=== PATIENT | female | born 1955 | race Caucasian/White ===

== ENCOUNTER → 2016-11-05 | Outpatient (CLI) | payer BC ==
--- NOTE | 2016-11-05 10:38 | REPMRS ---
Patient History The patient states she had a clinical breast exam in 10/2016. Patient is postmenopausal. Family history of breast cancer in maternal aunt at age 45. Benign stereotatic breast biopsy of the right breast, November 08, 2007. Took estrogen for 1 year. Took progesterone for 1 year. Digital Woman Screen Mammo: November 05, 2016 - Exam #: [id number] Bilateral CC and MLO view(s) were taken. Technologist: Tiny Duenas, Technologist Prior study comparison: November 03, 2015, digital woman screen mammo performed at [facility]. November 01, 2014, digital woman screen mammo performed at [facility]. October 31, 2013, digital woman screen mammo performed at [facility]. FINDINGS: There are scattered fibroglandular densities. There has been no change in the appearance of the mammogram from the prior studies. There is a needle biopsy marker clip in the right breast. There is a mild amount of scattered fibroglandular density which is fairly symmetric. There is no interval development of dominant mass, architectural distortion, or clustered microcalcification suggestive of malignancy. ASSESSMENT: BI-RADS/ACR category 2 mammogram. Benign finding(s). Recommendation Routine screening mammogram in 1 year (for women over age 40). This mammogram was interpreted with the aid of an FDA-approved computer-aided dectection system. Electronically Signed By: Yeison Joe MD 11/05/16 1038
== END ==
LOC: M WHC 09:01
PROVIDERS: ATTEND Nurse Practitioner Family
DX: Z12.31 Encounter for screening mammogram for malignant neoplasm of breast (principal)

== ENCOUNTER → 2017-11-07 | Outpatient (REF) | payer BC | LOC: M SFHCWAGY 12:29 | DX: Z12.4 Encounter for screening for malignant neoplasm of cervix (principal) | CPT/HCPCS: G0123 ==

== ENCOUNTER → 2017-11-07 | Outpatient (CLI) | payer BC | LOC: M WHC 09:24 | DX: Z12.31 Encounter for screening mammogram for malignant neoplasm of breast (principal) | CPT/HCPCS: 77067 ==

== ENCOUNTER → 2018-11-07 | Outpatient (CLI) | payer MEDICARE, BC ==
--- NOTE | 2018-11-07 12:28 | REPMRS ---
Patient History The patient states she had a clinical breast exam in 10/2018. Family history of breast cancer at age 45 in maternal aunt. Benign stereotatic breast biopsy of the right breast, November 08, 2007. Took estrogen for 1 year. Took progesterone for 1 year. 3D TOMOSYNTHESIS WAS PERFORMED. Digital Woman Screen Mammo: November 07, 2018 - Exam #: [id number] Bilateral CC and MLO view(s) were taken. Technologist: Sofia Hurtado, Technologist Prior study comparison: November 07, 2017, digital woman screen mammo performed at [facility]. November 05, 2016, digital woman screen mammo performed at [facility]. FINDINGS: The breast tissue is heterogeneously dense. This may lower the sensitivity of mammography. There has been no change in the appearance of the mammogram from the prior studies. There is a moderate amount of residual fibroglandular tissue which is fairly symmetric. There is no interval development of dominant mass, areas of architectural distortion, or clustered microcalcification typical of malignancy. Assessment: BI-RADS/ACR category 1 mammogram. Negative Mammogram. Recommendation Routine screening mammogram in 1 year (for women over age 40). This mammogram was interpreted with the aid of an FDA-approved computer-aided dectection system. Electronically Signed By: Declan Mendoza MD 11/07/18 1322
--- NOTE | 2018-11-10 14:02 | DEXA ---
AP SPINE L1 - L4 1.144 -0.4 1.2 LT FEMUR TOTAL 0.849 -1.3 -0.1 LT NECK 0.801 -1.7 -0.2 RT FEMUR TOTAL 0.884 -1.0 0.2 RT NECK 0.805 -1.7 -0.2 TOTAL BODY TOTAL OTHER COMMENTS: Normal bone densitometry of the spine. There is low bone density of the hips. The density of the spine has decreased 4.8% since 09/26/2008. The density of the left hip has decreased 10.6% since 09/26/2008. The density of the right hip has decreased 7.5% since 09/26/2008. The decreased density of the spine does represent a significant change. The decreased density of the left hip does represent a significant change. The decreased density of the right hip does represent a significant change. FOLLOW-UP: Recommendation for the next bone density exam: 2 years. KIRBY
== END ==
LOC: M WHC 09:12
PROVIDERS: ATTEND Nurse Practitioner Family
DX: Z01.419 Encounter for gynecological examination (general) (routine) without abnormal findings (principal); Z12.31 Encounter for screening mammogram for malignant neoplasm of breast; N95.9 Unspecified menopausal and perimenopausal disorder; Z86.018 Personal history of other benign neoplasm; Z92.23 Personal history of estrogen therapy; Z92.29 Personal history of other drug therapy; Z12.12 Encounter for screening for malignant neoplasm of rectum
CPT/HCPCS: 77063; 77067; 77080; 82270; G0101

== ENCOUNTER → 2019-12-12 | Outpatient (CLI) | payer MEDICARE, BC ==
--- NOTE | 2019-12-12 13:26 | REPMRS ---
Patient History The patient states she had a clinical breast exam in November 2019. Family history of breast cancer at age 45 in maternal aunt. Benign stereotatic breast biopsy of the right breast, November 08, 2007. Took estrogen for 1 year. Took progesterone for 1 year. Digital Woman Screen Mammo: December 12, 2019 - Exam #: [id number] Bilateral CC and MLO view(s) were taken. Technologist: Rosa Mcclellan, Technologist Prior study comparison: November 07, 2018, bilateral digital woman screen mammo performed at [facility]. November 07, 2017, digital woman screen mammo performed at [facility]. November 05, 2016, digital woman screen mammo performed at [facility]. FINDINGS: There are scattered fibroglandular densities. The Volpara volumetric breast density category is:B. A needle biopsy marker clip is again noted on the right There has been no change in the appearance of the mammogram from the prior studies. There is a mild amount of scattered fibroglandular density which is fairly symmetric. There is no interval development of dominant mass, architectural distortion, or grouped microcalcification suggestive of malignancy. 3-D tomosynthesis shows no additional findings. Assessment: BI-RADS/ACR category 2 mammogram. Benign Findings. Recommendation Routine screening mammogram of both breasts in 1 year (for women over age 40). This patient's Lifetime Breast Cancer Risk is estimated at 10.5 %. This mammogram was interpreted with the aid of an FDA-approved computer-aided dectection system. Electronically Signed By: Yeison Joe MD 12/12/19 [id number]
== END ==
LOC: M WHC 11:14
PROVIDERS: ATTEND Nurse Practitioner Family
DX: Z12.31 Encounter for screening mammogram for malignant neoplasm of breast (principal); Z86.018 Personal history of other benign neoplasm; Z92.23 Personal history of estrogen therapy; Z92.29 Personal history of other drug therapy
CPT/HCPCS: 77063; 77067; G0463

== ENCOUNTER → 2020-12-16 | Outpatient (CLI) | payer MEDICARE, BC ==
--- NOTE | 2020-12-16 12:46 | REPMRS ---
Patient History The patient states she had a clinical breast exam in 11/2020. Family history of breast cancer at age 45 in maternal aunt. Benign stereotatic breast biopsy of the right breast, November 08, 2007. Took estrogen for 1 year. Took progesterone for 1 year. Patient states no breast complaints today. Patient has signed MRS History Sheet. Digital Woman Screen Mammo: December 16, 2020 - Exam #: [id number] Bilateral CC and MLO view(s) were taken. Technologist: Tiny Duenas, Technologist Prior study comparison: December 12, 2019, bilateral digital woman screen mammo performed at [facility]. November 07, 2018, bilateral digital woman screen mammo performed at [facility]. FINDINGS: There are scattered fibroglandular densities. Screening. Digital screening (2D) mammography was performed bilaterally in the CC and MLO projections. Additionally, breast tomosynthesis (3D mammography) was performed bilaterally in the CC and MLO projections. Todays exam was compared to the prior exam/exams. By history, the patient has no complaints of a palpable breast abnormality or other significant breast complaints. The breasts are unchanged in size and shape. There are no rosalind-soft tissue densities or spiculated masses. There is no internal architectural distortion.Once again, stable benign appearing calcifications are seen. There are no suspicious rosalind-calcific clusters. Skin thickening or nipple retraction is not present. IMPRESSION: BI-RADS Category 2- Benign Findings. There is no evidence of malignant alteration of the breasts. Followup examination recommended in one year. The Volpara volumetric breast density category is B, there are scattered areas of fibroglandular densities. This mammogram was read with the assistance of [employer],an FDA approved computer aided detection system for mammography. The lifetime Tyrer-Cuzick score is 10 % Negative x-ray reports should not delay surgical consultation if a dominant or clinically suspicious mass is present. Not all breast cancers can be identified by mammography. Therefore, we recommend that you continue to perform regular breast self-examination and physical examination and then promptly contact your physician of any concerns or changes. Adenosis and dense breasts may obscure an underlying neoplasm. Assessment: BI-RADS/ACR category 2 mammogram. Benign Findings. Recommendation Routine screening mammogram of both breasts in 1 year. Electronically Signed By: Osmin Baron, 12/16/20 [id number]
== END ==
LOC: M WHC 10:44
PROVIDERS: ATTEND Nurse Practitioner Women's Health
DX: Z12.31 Encounter for screening mammogram for malignant neoplasm of breast (principal); Z86.018 Personal history of other benign neoplasm; Z92.23 Personal history of estrogen therapy; Z92.29 Personal history of other drug therapy; R92.1 Mammographic calcification found on diagnostic imaging of breast
CPT/HCPCS: 77063; 77067; G0101

== ENCOUNTER → 2021-12-15 | Outpatient (CLI) | payer MEDICARE, BC | LOC: M WHC 15:07 | PROVIDERS: ATTEND Advanced Practice Midwife | DX: Z12.31 Encounter for screening mammogram for malignant neoplasm of breast (principal) ==

== ENCOUNTER → 2021-12-15 | Outpatient (CLI) | payer MEDICARE, BC | LOC: M WHC 07:45 | PROVIDERS: ATTEND Advanced Practice Midwife | DX: Z12.31 Encounter for screening mammogram for malignant neoplasm of breast (principal) ==

== ENCOUNTER → 2023-01-04 | Outpatient (CLI) | payer MEDICARE, BC | LOC: M WHC 13:59 | PROVIDERS: ATTEND Advanced Practice Midwife | DX: Z12.31 Encounter for screening mammogram for malignant neoplasm of breast (principal) ==

== ENCOUNTER → 2024-03-21 | Outpatient (CLI) | payer MEDICARE, BC ==
[~2024-03-21] MED LIST: SIMV20TA22 PO; XALA0.007 OU
== END ==
LOC: M WHC 12:51
PROVIDERS: ATTEND Internal Medicine
DX: Z12.31 Encounter for screening mammogram for malignant neoplasm of breast (principal); R92.313 Mammographic fatty tissue density, bilateral breasts

== ENCOUNTER 2024-04-24 09:29 | Emergency (ER) | payer MEDICARE, BC ==
[~2024-04-24] VITALS: Ht 172.7 cm; Wt 78.5 kg
[2024-04-24 10:18] LABS: BASO % 0.7 % (0.0-1.0); EOS # 0.1 10^3/uL (0.0-0.5); EOS % 1.7 % (0.0-3.0); HEMATOCRIT 44.5 % (36.0-47.0); LYMPH # 1.1 10^3/uL (1.5-5.0); LYMPH % 27.9 % (24.0-44.0); MEAN CORPUSCULAR HEMOGLOBIN 30.1 pg (27.0-33.0); MEAN CORPUSCULAR HGB CONC 33.7 g/dl (32.0-36.5); MEAN CORPUSCULAR VOLUME 89.4 fl (80.0-96.0); MONO # 0.4 10^3/uL (0.0-0.8); MONO % 8.7 % (2.0-8.0); NEUTROPHILS # 2.4 10^3/uL (1.5-8.5); NEUTROPHILS % 60.8 % (36.0-66.0); PLATELET COUNT, AUTOMATED 209 10^3/uL (150-450); RED BLOOD COUNT 4.98 10^6/uL (4.00-5.40)
[2024-04-24 10:30] LABS: CALCIUM LEVEL 10.1 MG/DL (8.3-10.6); CREATININE FOR GFR 1.04 MG/DL (0.55-1.30); GLOMERULAR FILTRATION RATE 55.8 (>39); MB/CK RELATIVE INDEX 0.68 (< OR =4)
[2024-04-24] MEDS: METOPROLOL TART 25 MG TABLET PO ONE (10:38)
[2024-04-24] MEDS: METOPROLOL 5 MG/5 ML VIAL IV SCH ×2 (10:41→11:34)
[2024-04-24 11:21] LABS: CK-MB VALUE MASS < 1.0 NG/ML (<3.6); CPK CREATINE PHOSPHOKINASE 132 U/L (34-145); MB/CK RELATIVE INDEX 0.75 (< OR =4)
[2024-04-24] MEDS ORDERED: ISOVUE-370 76% 100ML VIAL As Ordered ONE (11:26)
[2024-04-24 11:34] VITALS: BP 130/76
[2024-04-24] MEDS ORDERED: HOME MED LIST COMPLETE! XX SCH (12:45)
[2024-04-24] MEDS ORDERED: METO25TA4 PO (14:34)
[2024-04-24] MEDS ORDERED: ASPI-1 PO (14:34)
[2024-04-24 14:45] VITALS: BP 128/76; TEMP 97.8; O2SAT 96
== END 2024-04-24 14:45 | disposition home or self-care (01) ==
LOC: M ED 09:29 → EDBD 09:29 → M ED 14:45
DX: I48.91 Unspecified atrial fibrillation (principal); R79.89 Other specified abnormal findings of blood chemistry; E78.5 Hyperlipidemia, unspecified; M54.30 Sciatica, unspecified side; Z79.82 Long term (current) use of aspirin; Z79.899 Other long term (current) drug therapy; Z88.2 Allergy status to sulfonamides
CPT/HCPCS: 71045; 71275; 80048; 82550; 82553; 84484; 85025; 93005; 93041; 93971; 94760; 96374; 96376; 99285; Q9967

== ENCOUNTER → 2024-04-30 | Outpatient (CLI) | payer MEDICARE, BC ==
[~2024-04-30] MED LIST changes: +ASPI-1 PO; +METO25TA4 PO
== END ==
LOC: M RAD 11:55
PROVIDERS: ATTEND Physician Assistant
DX: S82.452D Displaced comminuted fracture of shaft of left fibula, subsequent encounter for closed fracture with routine healing (principal); I82.442 Acute embolism and thrombosis of left tibial vein

== ENCOUNTER → 2024-05-08 | Outpatient (CLI) | payer MEDICARE, BC | LOC: M CARPUL 08:27 | PROVIDERS: ATTEND Internal Medicine | DX: I48.0 Paroxysmal atrial fibrillation (principal); I08.3 Combined rheumatic disorders of mitral, aortic and tricuspid valves ==

== ENCOUNTER → 2024-10-31 | Outpatient (CLI) | payer MEDICARE, BC | LOC: M WUC 11:51 | PROVIDERS: ATTEND Internal Medicine | DX: M54.50 Low back pain, unspecified (principal) ==

== ENCOUNTER → 2025-03-15 | Outpatient (REF) | payer MEDICARE, BC ==
[2025-03-20 18:52] LABS: FACTOR V LEIDEN FOR MEDINET NEGATIVE
== END ==
LOC: M LAB REF 12:12
PROVIDERS: ATTEND Internal Medicine
DX: I82.442 Acute embolism and thrombosis of left tibial vein (principal); Z86.718 Personal history of other venous thrombosis and embolism

== ENCOUNTER 2025-04-08 09:37 | Day surgery (SDC) | payer MEDICARE, BC ==
[~2025-04-08] VITALS: Ht 172.7 cm; Wt 75.7 kg
[~2025-04-08 09:37] MED LIST changes: +ELIQ5TAB; +LR 1,000 ML IV SCH; +MIDAZOLAM INJ 2 MG/2 ML VIAL As Ordered ONE
[2025-04-08] MEDS: PHENYLEPHRINE 2.5% OPHTH SOL 2ML OD SCH (10:03)
[2025-04-08] MEDS: TETRACAINE 0.5% OPHTH SOLN 4ML OD SCH (10:03)
[2025-04-08] MEDS: FLURBIPROFEN 0.03% OPHTH SOLN 2.5 ML OD SCH (10:03)
[2025-04-08] MEDS: CYCLOPENTOLATE 1% OPHTH SOLN 2 ML BTL OD SCH (10:03)
[2025-04-08] MEDS: LIDOCAINE 1% SDV 5 ML VIAL As Ordered ONE (11:04)
[2025-04-08] MEDS: CEFUROXIME 1 MG/0.1 ML INTRACAMERAL INJ As Ordered ONE (11:05)
[2025-04-08 11:37] VITALS: BP 131/70; TEMP 97.2; O2SAT 97
== END 2025-04-08 11:45 | disposition home or self-care (01) ==
LOC: M SDC 09:37
PROVIDERS: ATTEND Ophthalmology
DX: H40.1111 Primary open-angle glaucoma, right eye, mild stage (principal); H25.12 Age-related nuclear cataract, left eye; I48.0 Paroxysmal atrial fibrillation; Z79.01 Long term (current) use of anticoagulants; Z79.899 Other long term (current) drug therapy; E78.00 Pure hypercholesterolemia, unspecified; E55.9 Vitamin D deficiency, unspecified; Z86.718 Personal history of other venous thrombosis and embolism; Z88.2 Allergy status to sulfonamides
CPT/HCPCS: 66991; C1783; J0697; J2250; J3010; V2632

== ENCOUNTER → 2025-04-12 | Outpatient (CLI) | payer MEDICARE, BC ==
[~2025-04-12] MED LIST changes: -LR 1,000 ML IV SCH; -MIDAZOLAM INJ 2 MG/2 ML VIAL As Ordered ONE
== END ==
LOC: M WHC 12:54
PROVIDERS: ATTEND Advanced Practice Midwife
DX: Z12.31 Encounter for screening mammogram for malignant neoplasm of breast (principal); Z01.419 Encounter for gynecological examination (general) (routine) without abnormal findings; R92.323 Mammographic fibroglandular density, bilateral breasts

== ENCOUNTER → 2025-04-25 | Outpatient (CLI) | payer MEDICARE, BC | LOC: M WHC 10:16 | PROVIDERS: ATTEND Internal Medicine | DX: M85.89 Other specified disorders of bone density and structure, multiple sites (principal) ==